=== PATIENT | female | born 1990 | race Caucasian/White ===

== ENCOUNTER 2018-03-06 12:17 | Emergency (ER) | payer MEDICAID ==
[~2018-03-06] VITALS: Ht 160 cm; Wt 66.2 kg
[~2018-03-06 12:17] MED LIST: FERR-252 PO; PREN-385 PO
[2018-03-06 12:37] VITALS: BP 126/80
[2018-03-06 16:01] LABS: BARBITURATE, URINE NEG. ng/ml (NEG <=200); BENZODIAZEPINE, URINE NEG. ng/mL (NEG <=200); CANNABINOID, URINE NEG. ng/mL (NEG <=50); COCAINE, URINE NEG. ng/mL (NEG <=300); OPIATE, URINE NEG. ng/mL (NEG <=2000); PHENCYCLIDINE SCREEN,URINE NEG. ng/mL (NEG <=25)
[2018-03-06] MEDS: MORPHINE SULFATE 2 MG/ML SYR IM ONE (16:03)
[2018-03-06] MEDS: KETOROLAC 60 MG/2 ML VIAL IM ONE (16:03)
[2018-03-06] MEDS ORDERED: MORPHINE SULFATE 4 MG/ML SYR ONE (16:04)
[2018-03-06 16:18] LABS: APPEARANCE,URINE HAZY (CLEAR); BILIRUBIN,URINE NEGATIVE (NEGATIVE); BLOOD, URINE 2+ (NEGATIVE); COLOR,URINE YELLOW (YELLOW); LEUKOCYTE ESTERASE ,URINE NEGATIVE (NEGATIVE); NITRITE, URINE NEGATIVE (NEGATIVE); UGLUCOSE NEGATIVE (NEGATIVE)
[2018-03-06 16:24] LABS: RBC,URINE 3-10 (FEW) /HPF (0-5)
[2018-03-06 16:25] LABS: URINE AMORPHOUS URATE 4+ /HPF (None Seen); WBC,URINE 0-5 (RARE) /HPF (0-5)
[2018-03-06 18:15] VITALS: BP 131/84
== END 2018-03-06 18:15 | disposition home or self-care (01) ==
LOC: MED 12:17
DX: M51.17 Intervertebral disc disorders with radiculopathy, lumbosacral region (principal); Z79.899 Other long term (current) drug therapy
CPT/HCPCS: 74176; 80305; 81001; 81025; 96372; 99285; C1758; J1885; J2270

== ENCOUNTER 2023-08-10 00:45 | Emergency (ER) | payer MEDICAID ==
[~2023-08-10] VITALS: Ht 154.9 cm; Wt 82.1 kg
[2023-08-10 01:31] VITALS: BP 137/93; PULSE 92; RESP 16; TEMP 98.2; O2SAT 98
[2023-08-10 01:42] VITALS: O2SAT 99
[2023-08-10] MEDS: PSEUDOEPHEDRINE 30 MG TAB PO ONE (02:51)
[2023-08-10] MEDS: DEXAMETHASONE 10 MG/ML VIAL PO ONE (02:51)
[2023-08-10] MEDS: KETOROLAC 30 MG/ML VIAL IM ONE (03:00)
[2023-08-10] MEDS ORDERED: LORA1T1237 PO (04:02)
[2023-08-10] MEDS ORDERED: NAPR-1717 PO (04:02)
[2023-08-10 04:12] VITALS: BP 141/95; PULSE 89; RESP 17; TEMP 97.9; O2SAT 97
== END 2023-08-10 04:12 | disposition home or self-care (01) ==
LOC: MED 00:45
DX: J01.90 Acute sinusitis, unspecified (principal); H92.03 Otalgia, bilateral; J06.9 Acute upper respiratory infection, unspecified; B97.89 Other viral agents as the cause of diseases classified elsewhere; R03.0 Elevated blood-pressure reading, without diagnosis of hypertension; Z79.1 Long term (current) use of non-steroidal anti-inflammatories (NSAID); Z79.899 Other long term (current) drug therapy
CPT/HCPCS: 81025; 87081; 96372; 99283; J1100; J1885